=== PATIENT | female | born 1980 | race Caucasian/White ===

== ENCOUNTER 2017-04-24 15:29 | Emergency (ER) | payer BC ==
[2017-04-24 15:40] VITALS: BP 108/64; PULSE 63; TEMP 98.2; BMI 23.9
[2017-04-24] MEDS ORDERED: DIPHTH,PERTUSS(ACELL),TET 0.5 ML DISP.SYRIN IM ONE (16:44)
--- NOTE | 2017-04-24 16:48 | PDOC ---
History of Present Illness - General Chief Complaint: Injury Stated Complaint: INJURY Time Seen by Provider: 04/24/17 16:41 History Source: Patient Exam Limitations: No Limitations - History of Present Illness Initial Comments: 04/24/17 16:45 CHIEF COMPLAINT: Injury to left thumb HISTORY OF PRESENT ILLNESS: Patient is a 36-year-old female, history of bilateral mastectomy preventative for BRCA Luis Enrique. Patient presents emergency department for evaluation of left thumb crush injury from a window. Occurred prior to arrival. There is good range of motion with bruising to base of thumb. With superficial abrasion. Tetanus not up to date. Occurred: reports: just prior to arrival Severity: reports: moderate Upper Extremity Pain Location: left: thumb Extremity Pain Location - Extremity Pain Location Extremity Pain Locations: left: thumb Past History - Past Medical History Allergies/Adverse Reactions: Allergies Allergy/AdvReac Type Severity Reaction Status Date / Time amoxicillin Allergy Verified 04/24/17 15:40 Home Medications: Ambulatory Orders NK [No Known Home Medication] 04/24/17 Cancer: (BRCA1 GENE, MASTECTOMY DONE) - Psycho/Social/Smoking Cessation Hx Suicidal Ideation: No Smoking History: Never smoked Information on smoking cessation initiated: No Hx Alcohol Use: No Drug/Substance Use Hx: No Substance Use Type: None Review of Systems - Review of Systems Constitutional: No: Symptoms Reported Respiratory: No: Symptoms reported Musculoskeletal: Yes: Joint Pain, Joint Swelling Integumentary: Yes: Bruising. No: Erythema Neurological: No: Symptoms reported, Paresthesia, Tingling *Physical Exam - Vital Signs Last Vital Signs Temp Pulse Resp BP Pulse Ox 98.2 F 63 18 108/64 99 04/24/17 15:38 04/24/17 15:38 04/24/17 15:38 04/24/17 15:38 04/24/17 15:38 - Physical Exam General Appearance: Yes: Appropriately Dressed. No: Apparent Distress Musculoskeletal: positive: Decreased Range of Motion (related to pain of the left thumb. ), Other (No snuff box pain) Extremity: positive: Tender, Swelling, Erythema Integumentary: positive: Swelling, Ecchymosis (base of the left thumb. ) Neurologic: positive: Alert, Normal Mood/Affect ED Treatment Course - RADIOLOGY Radiology Studies Ordered: Category Date Time Status HAND- LEFT [RAD] Stat Radiology 04/24/17 16:44 Ordered Medical Decision Making - Medical Decision Making 04/24/17 16:48 A/P: Patient here for evaluation of crush injury to left thumb, appears to be intact with good range of motion however there is bruising at base of thumb. Small abrasion. Tetanus given because patient is not up-to-date will send for x- ray to rule out acute fracture. 04/24/17 18:41 X-rays negative for acute fracture, will DC patient home, Motrin as needed for pain. If pain persists follow up with orthopedics. I discussed the physical exam findings, ancillary test results and final diagnoses with the patient. I answered all of the patient's questions. The patient was satisfied with the care received and felt comfortable with the discharge plan and treatment plan. The patient will call to arrange follow-up and will return to the Emergency Department with any new, persistent or worsening symptoms. *DC/Admit/Observation/Transfer Diagnosis at time of Disposition: Finger injury Qualifiers: Encounter type: initial encounter Laterality: left Qualified Code(s): S69.92XA - Unspecified injury of left wrist, hand and finger(s), initial encounter - Discharge Dispostion Disposition: HOME Condition at time of disposition: Good Admit: No - Referrals Referrals: Jose Martin Lr MD [Staff Physician] - - Patient Instructions Additional Instructions: Ice and elevate when at rest, or tetanus now up to date please follow-up with Dr. Lr as needed for increased pain.
== END 2017-04-24 18:11 | disposition home or self-care (01) ==
LOC: JERFT 15:29
PROC: 3E0234Z Introduction of Serum, Toxoid and Vaccine into Muscle, Percutaneous Approach (ICD-10-PCS; principal; 2017-04-24)
DX: S67.02XA Crushing injury of left thumb, initial encounter (principal); S60.312A Abrasion of left thumb, initial encounter; W23.0XXA Caught, crushed, jammed, or pinched between moving objects, initial encounter; Y93.89 Activity, other specified; Y92.89 Other specified places as the place of occurrence of the external cause; Y99.8 Other external cause status
CPT/HCPCS: 73130-TC-LT; 90715; 99281-25